=== PATIENT | male | born 1980 | race Caucasian/White ===

== ENCOUNTER 2017-03-04 14:56 | Emergency (ER) | payer OTHER ==
[~2017-03-04] VITALS: Ht 182.9 cm; Wt 93.7 kg
[2017-03-04] MEDS ORDERED: NAPROSYN500 MG PO (21:41)
[2017-03-04] MEDS ORDERED: TRAMADOL HCL50 MG PO (21:41)
[2017-03-04 21:48] VITALS: BP 147/94
== END 2017-03-04 21:49 | disposition home or self-care (01) ==
LOC: EME 14:56
DX: S56.912A Strain of unspecified muscles, fascia and tendons at forearm level, left arm, initial encounter (principal); X50.0XXA Overexertion from strenuous movement or load, initial encounter; Y93.89 Activity, other specified; Z88.0 Allergy status to penicillin
CPT/HCPCS: 93971; 99281; 99284

== ENCOUNTER 2017-04-18 15:00 | Emergency (ER) | payer OTHER ==
[~2017-04-18] VITALS: Ht 182.9 cm; Wt 97.0 kg
[~2017-04-18 15:00] MED LIST: NAPROSYN500 MG PO; TRAMADOL HCL50 MG PO
[2017-04-18] MEDS ORDERED: GABAPENTIN300 MG PO (16:18)
[2017-04-18] MEDS ORDERED: REQUIP0.25 MG PO (16:20)
[2017-04-18] MEDS ORDERED: REQUIP1 MG PO (16:20)
[2017-04-18] MEDS ORDERED: ALBUTEROL2.5 MG/3 M IH (16:21)
[2017-04-18] MEDS ORDERED: KLONOPIN0.5 M1 PO (16:22)
[2017-04-18] MEDS ORDERED: LISINOPRIL40 MG PO (16:22)
[2017-04-18] MEDS ORDERED: VENTOLIN HFA18 GM IH (18:56)
[2017-04-18] MEDS ORDERED: PERCOCET 5/31 TABLET PO (18:57)
[2017-04-18] MEDS ORDERED: MOTRIN800 MG PO (18:57)
[2017-04-18 19:07] VITALS: BP 147/97
== END 2017-04-18 19:08 | disposition home or self-care (01) ==
LOC: EME 15:00
DX: S20.212A Contusion of left front wall of thorax, initial encounter (principal); X58.XXXA Exposure to other specified factors, initial encounter; F17.200 Nicotine dependence, unspecified, uncomplicated; Z87.442 Personal history of urinary calculi; Z88.0 Allergy status to penicillin
CPT/HCPCS: 71101; 99281; 99284

== ENCOUNTER 2017-12-06 09:53 | Emergency (ER) | payer OTHER ==
[~2017-12-06] VITALS: Ht 182.9 cm; Wt 101.1 kg
[~2017-12-06 09:53] MED LIST changes: +ALBUTEROL2.5 MG/3 M IH; +GABAPENTIN300 MG PO; +KLONOPIN0.5 M1 PO; +LISINOPRIL40 MG PO; +MOTRIN800 MG PO; +PERCOCET 5/31 TABLET PO; +REQUIP0.25 MG PO; +REQUIP1 MG PO; +VENTOLIN HFA18 GM IH
[2017-12-06 12:06] LABS: HEMATOCRIT 47.2 % (38.0-50.0); HEMOGLOBIN 16.3 G/DL (12.5-16.6); MCH 32.1 PG (29.0-34.0); MCHC 34.5 G/DL (30.0-36.0); MCV 93.1 FL (86-99); PLATELET COUNT 302 K/uL (156-360); RBC DIS.WIDTH-CV 11.9 % (11.8-14.6); RBC DIS.WIDTH-SD 41.1 % (39-53); RED BLOOD COUNT 5.07 M/uL (4.00-5.50); WHITE BLOOD COUNT 7.7 K/uL (4.1-10.2)
[2017-12-06 12:12] LABS: APPEARANCE CLOUDY ((CLEAR)); BILIRUBIN NEGATIVE; BLOOD LARGE; GLUCOSE (STRIP) NEGATIVE; KETONES NEGATIVE; LEUKOCYTES NEGATIVE; NITRITE NEGATIVE; PROTEIN (STRIP) 100; SPECIFIC GRAVITY 1.017 (1.000-1.030); UROBILINOGEN 0.2 MG/DL (0.2-1.0)
[2017-12-06 12:16] LABS: ALBUMIN 4.7 g/dL (3.2-4.8); CHLORIDE 106 mEq/L (99-109); POTASSIUM 4.5 mEq/L (3.7-5.4); SODIUM 139 mEq/L (136-147)
[2017-12-06 12:18] LABS: COLOR LT.RED ((YELLOW))
[2017-12-06 12:19] LABS: GLUCOSE 100 mg/dL (70-99); TOTAL PROTEIN 7.9 g/dL (6.4-8.3)
[2017-12-06 12:20] LABS: TOTAL BILIRUBIN 0.5 mg/dL (0.0-1.0)
[2017-12-06 12:22] LABS: ALKALINE PHOSPHATASE 57 IU/L (3-129); CREATININE 0.9 mg/dL (0.6-1.3); GFR ESTIMATE (CALCULATED) > 59 mL/min/ (58.99-99999)
[2017-12-06 12:23] LABS: UREA NITROGEN (BUN) 13 mg/dL (9-23)
[2017-12-06 12:24] LABS: AST (GOT) 19 IU/L (2-34)
[2017-12-06 12:25] LABS: ALT (GPT) 26 IU/L (3-49)
[2017-12-06 12:31] LABS: RED BLOOD CELLS TNTC /HPF (0-5)
[2017-12-06 12:32] LABS: BACTERIA NONE SEEN /HPF; EPITHELIAL CELLS RARE /HPF; MUCUS NONE SEEN /LPF; UCUL ADDED? YES; WHITE BLOOD CELLS 0-5 /HPF (0-5)
[2017-12-06] MEDS ORDERED: NAPROSYN500 MG PO (14:08)
[2017-12-06] MEDS ORDERED: FLOMAX0.4 MG PO (14:08)
[2017-12-06] MEDS ORDERED: CLEOCIN300 MG PO (14:08)
[2017-12-06] MEDS ORDERED: LORTAB 5-325 M1 EACH PO (14:08)
[2017-12-06 14:23] VITALS: BP 123/68
== END 2017-12-06 14:25 | disposition home or self-care (01) ==
LOC: EME 09:53
PROVIDERS: Nurse Practitioner Family
DX: N20.0 Calculus of kidney (principal); K04.7 Periapical abscess without sinus; I70.0 Atherosclerosis of aorta; Z87.442 Personal history of urinary calculi; F17.200 Nicotine dependence, unspecified, uncomplicated; Z88.0 Allergy status to penicillin
CPT/HCPCS: 74176; 80053; 81003; 85027; 87086; 99281; 99284